=== PATIENT | female | born 1945 | race Caucasian/White ===

== ENCOUNTER → 2017-05-03 | Outpatient (CLI) | payer OTHER | LOC: FIMAGING 09:24 | PROVIDERS: ATTEND Family Medicine | DX: Z13.820 Encounter for screening for osteoporosis (principal); M81.0 Age-related osteoporosis without current pathological fracture | CPT/HCPCS: G0202 ==

== ENCOUNTER 2018-12-31 12:39 | Emergency (ER) | payer OTHER ==
[2018-12-31 12:51] VITALS: BP 118/72
[2018-12-31] MEDS ORDERED: ONDANSETRON 4 MG/2 ML VIAL IVP ONE (13:05)
[2018-12-31] MEDS ORDERED: fentaNYL 100 MCG/2 ML INJ IVP ONE (13:05)
[2018-12-31] MEDS ORDERED: NS 1,000 ML IV ONE (13:05)
[2018-12-31] MEDS ORDERED: DIAZEPAM 10 MG/2 ML SYR IVP ONE (13:06)
[2018-12-31] MEDS ORDERED: KETOROLAC 30 MG/1 ML SDV IVP ONE (13:06)
--- NOTE | 2018-12-31 13:15 | EDPHY ---
H & P Time Seen by Provider: 12/31/18 12:57 HPI/ROS: CHIEF COMPLAINT: Back pain HISTORY OF PRESENT ILLNESS: Patient is a 73-year-old female who presents emergency department with lumbar back pain. The patient states she was entering horse stall when the horse pressed forward. This caused a horse to run into her knocking her over. She landed on her right side. She states that "I had 12 min of pain on the ground."She states initially she was unable to move due to the pain. Her symptoms subsequently improved. She now complains of moderate bilateral lumbar discomfort. It is worse with movement. She feels as though she has muscle spasm. The patient initially states that she had the wind knocked out of her but she has no chest pain or shortness of breath at this time. She did not strike her head or lose consciousness. No numbness or tingling. No weakness. REVIEW OF SYSTEMS: 10 systems were reveiwed and are negative with the exception of the elements mentioned in the history of present illness. Past Medical/Surgical History: Includes osteoporosis Past surgical history: No spinal surgery Social history: Patient does not smoke Smoking Status: Never smoked Physical Exam: GENERAL: Well-appearing, in no acute distress, alert. HEAD: No evidence of trauma. EYES: PERRLA, EOMI, normal to inspection. ENT: Airway intact, no dental or oral injury, no malocclusion, normal external examination. NECK: The trachea is midline. There is no crepitus. The C-spine is nontender. NEXUS criteria is negative (no midline tenderness, no distracting injury, no altered mental status, no recent alcohol use, no focal neurologic deficit). RESPIRATORY: Clear to auscultation bilaterally, no rales, rhonchi or wheezing. Chest wall: Normal to appearance. No crepitance or deformity. CVS: Regular rate and rhythm, no rubs, murmurs, or gallops. ABDOMEN: Soft, nontender, nondistended, no bruising or abrasions. Pelvis: Stable. The mild right lateral tenderness to palpation. BACK: Normal to inspection, no spinal tenderness, no spinal step off, no notable bruising or abrasions. SKIN: Normal color, warm, dry. No pallor or diaphoresis. EXTREMITIES: Atraumatic, neurovascularly intact distally in all extremities, hips with full range of motion, moves all extremities freely. NEURO/PSYCH: Alert and oriented x 3, GCS 15, normal mood and affect, normal motor sensory exam. Constitutional: Initial Vital Signs Temperature (C) 36.7 C 12/31/18 12:39 Heart Rate 72 12/31/18 12:39 Respiratory Rate 18 12/31/18 12:39 Blood Pressure 118/72 12/31/18 12:39 O2 Sat (%) 93 12/31/18 12:39 O2 Delivery Mode Room Air O2 (L/minute) 2 Allergies/Adverse Reactions: No Known Allergies Allergy (Verified 12/31/18 12:47) Home Medications: Medication Instructions Recorded No Medications [NO HOME 1 ea [facility] [place] 01/27/12 MEDICATIONS] Cyclobenzaprine [Flexeril] 10 mg PO TID #15 tab 12/31/18 Hydrocodone/APAP 5/325 [[place] 1 - 2 tab PO Q4 #13 tab 12/31/18 5/325 (RX)] Medical Decision Making ED Course/Re-evaluation: In the emergency department I discussed possible etiologies with the patient. I answered all her questions. An IV was placed by EMS. Patient was given Toradol 30 mg IV, fentanyl 100 mcg IV, Valium 2.5 mg IV for her back pain. Patient's abdominal exam is completely benign. I doubt intra-abdominal injury. Patient had CT of her lumbar spine and pelvis. Patient consented. Pelvis CT: Please refer the dictated report by Dr. Nguyen. No acute disease noted. Lumbar spine CT: Please refer the dictated report by Dr. Nguyen. No acute disease noted. There is spinal stenosis. I discussed the results with the patient. I answered all her questions. Patient had no focal deficits on repeat exam. Patient was ambulated in the emergency department. She was able to walk without difficulty. Patient was given warnings prior to leaving. She will return worsening symptoms. Differential Diagnosis: My differential includes but is not limited to muscle spasm, muscle strain, disc herniation, cauda equina syndrome, fracture, dislocation, pneumothorax, hemothorax, rib fracture - Data Points Medications Given: Discontinued Medications Diazepam (Valium) 2.5 mg IVP EDNOW ONE Stop: 12/31/18 13:07 Last Admin: 12/31/18 13:24 Dose: 2.5 mg Fentanyl (Sublimaze) 100 mcg IVP EDNOW ONE Stop: 12/31/18 13:06 Last Admin: 12/31/18 13:24 Dose: 100 mcg Sodium Chloride (Ns) 1,000 mls @ 0 mls/hr IV ONCE ONE; Wide Open PRN Reason: Protocol Stop: 12/31/18 13:06 Last Admin: 12/31/18 13:26 Dose: 1,000 mls Ketorolac Tromethamine (Toradol) 30 mg IVP EDNOW ONE Stop: 12/31/18 13:07 Last Admin: 12/31/18 13:23 Dose: 30 mg Ondansetron HCl (Zofran) 4 mg IVP EDNOW ONE Stop: 12/31/18 13:06 Last Admin: 12/31/18 13:24 Dose: 4 mg Departure - Departure Disposition: Home, Routine, Self-Care Clinical Impression: Low back pain Qualifiers: Chronicity: acute Back pain laterality: midline Sciatica presence: without sciatica Qualified Code(s): M54.5 - Low back pain Condition: Good Instructions: Back Pain (ED) Additional Instructions: Return with increasing pain, weakness, numbness, incontinence of urine or stool , fever or any other concerns. Referrals: Jose George MD [Medical Doctor] - 5-7 days, if not improved Prescriptions: Cyclobenzaprine [Flexeril] 10 mg PO TID #15 tab Hydrocodone/APAP 5/325 [[place] 5/325 (RX)] 1 - 2 tab PO Q4 #13 tab
== END 2018-12-31 14:26 | disposition home or self-care (01) ==
LOC: EDUNIT#
DX: M54.5 Low back pain (principal); E86.9 Volume depletion, unspecified; W55.12XA Struck by horse, initial encounter; Y93.K9 Activity, other involving animal care; Y92.71 Barn as the place of occurrence of the external cause
CPT/HCPCS: 72131; 72192; 96361; 96374; 96375; 99285; J1885; J2405; J3010; J3360